=== PATIENT | male | born 1965 | race Caucasian/White ===

== ENCOUNTER 2016-10-11 09:53 | Emergency (ER) | payer OTHER ==
[~2016-10-11] VITALS: Ht 185.4 cm; Wt 175.4 kg
[2016-10-11 09:57] VITALS: TEMP 36.8; Ht 185.4 cm; Wt 175.4 kg
[2016-10-11] MEDS ORDERED: HYDR25TA4 PO (10:33)
[2016-10-11] MEDS ORDERED: AMLO-114 PO (10:33)
[2016-10-11] MEDS ORDERED: FUROSEMIDE 40 MG/4 ML VIAL IV STA (10:49)
[2016-10-11] MEDS ORDERED: CEFAZOLIN IV 2,000 MG in DEXTROSE 5% 50ML 50 ML IV ONE (11:00)
[2016-10-11 11:21] LABS: BASO % 0.4 %; BASO ABS # 0.02 K/uL (0-0.2); COMPLETE YES; EOS % 2.8 %; HEMATOCRIT 42.3 % (42-52); IG% 0.6 %; LYMPH % 13.4 %; LYMPH ABS # 0.72 K/uL (1.2-3.4); MEAN CELL VOLUME 82.8 fL (80-100); MEAN CORPUSCULAR HEMOGLOBIN 28.4 pg (25-34); MEAN CORPUSCULAR HGB CONC 34.3 g/dl (32-36); MEAN PLATELET VOLUME 11.1 fL (7.4-10.4); MONO % 10.4 %; NEUT % 72.4 %; PLATELET COUNT 143 K/uL (130-400); RED BLOOD COUNT 5.11 M/uL (4.7-6.1); WHITE BLOOD COUNT 5.38 K/uL (4.8-10.8)
[2016-10-11 11:35] LABS: PARTIAL THROMBOPLASTIN RATIO 1.3; PROTHROMBIN TIME (PATIENT) 10.7 SECONDS (9.0-12.0)
--- NOTE | 2016-10-11 11:37 | DIAGNOSTIC IMAGING REPORT ---
ULTRASOUND RIGHT VENOUS DOPP LOWER EXT UNILAT CLINICAL HISTORY: Right leg swelling COMPARISON STUDY: No previous studies for comparison. FINDINGS: Real-time and color flow Doppler imaging were performed. Flow was seen within the femoral, popliteal and calf veins with no intraluminal thrombus demonstrated. The saphenous vein is patent. IMPRESSION: No evidence of right lower extremity DVT. Electronically signed by: Minh Chapman M.D. 10/11/2016 11:35 AM Dictated Date/Time: 10/11/2016 11:35 AM
[2016-10-11 12:00] LABS: ALB/GLOB RATIO 1.1 (0.9-2); BUN/CREATININE RATIO 14.4 (10-20); CALCIUM 9.2 mg/dl (8.5-10.1); CREATININE 1.1 mg/dl (0.60-1.40); POTASSIUM 4.1 mmol/L (3.5-5.1)
[2016-10-11] MEDS ORDERED: CEPH500C PO (12:22)
[2016-10-11] MEDS ORDERED: LSX/40 PO (12:22)
--- NOTE | 2016-10-11 12:23 | EMERGENCY ROOM VISIT NOTE ---
History Report prepared by Bam: Rachid Nunes Under the Supervision of: Dr. Keyon Granados D.O. First contact with patient: 10:41 Chief Complaint: SWELLING TO EXTREMITY Stated Complaint: SWELLING TO RIGHT CALF History of Present Illness The patient is a 51 year old male who presents to the Emergency Room with complaints of worsening right calf swelling that started over the past few months. He says that he believes that he has a bunch of fluid in his leg, and he has had trouble with this in the past. The patient notes that he was seen at [facility] 3 weeks ago, and had an ultrasound which revealed no blood clots. He says that he has a bit of pain on the side of his right leg, and the patient was told by the doctors there to put a hot water bottle on the leg. The patient states that as the day goes on while sitting or walking, the fluid builds up, and the fluid is starting to make its way up to his right knee. He says that his left leg was swollen before, and it blistered up and the swelling went down. His right leg is more swollen and red than his left one currently. The patient takes blood pressure pills and fluid pills daily. The patient says that his blood pressure was measured at 140/80 prior to arrival. He states that he may have a bit of white coat syndrome. The patient is a social drinker. Source of History: patient Onset: Past few months Position: leg (right) Symptom Intensity: fluid making way up to right knee Quality: other (swelling, fluid filled) Timing: worsening Note: Associated symptoms: Right leg pain. Right leg more swollen and red than left leg. Review of Systems See HPI for pertinent positives & negatives. A total of 10 systems reviewed and were otherwise negative. Past Medical & Surgical Medical Problems: (1) HTN (hypertension) Family History Cancer FHx: stroke Heart disease Social History Smoking Status: Never Smoker Alcohol Use: occasionally Occupation Status: employed Current/Historical Medications Scheduled Amlodipine (Norvasc), 10 MG PO DAILY Cephalexin Monohydrate (Keflex), 500 MG PO QID Furosemide (Lasix), 40 MG PO QD Hydrochlorothiazide (Hctz), 25 MG PO DAILY Allergies Coded Allergies: Codeine (Unverified Allergy, Intermediate, HIVES, 10/11/16) Physical Exam Vital Signs Date Time Temp Pulse Resp B/P Pulse Ox O2 Delivery O2 Flow Rate FiO2 10/11/16 11:53 82 16 204/95 95 Room Air 10/11/16 09:57 36.8 93 18 217/118 95 Room Air Physical Exam CONSTITUTIONAL/VITAL SIGNS: Reviewed / noted above. GENERAL: Non-toxic in appearance. INTEGUMENTARY: Warm, dry, and [place]. HEAD: Normocephalic. EYES: without scleral icterus or trauma. ENT/OROPHARYNX: clear and moist. LYMPHADENOPATHY/NECK: Is supple without lymphadenopathy or meningismus. RESPIRATORY: Lungs clear and equal. CARDIOVASCULAR: Regular rate and rhythm. GI/ABDOMEN: Soft and nontender. No organomegaly or pulsatile mass. No rebound or guarding. Normal bowel sounds. EXTREMITIES: Bilateral lower extremity edema right greater than left. Light erythema to inferior aspect of lower leg. BACK: No CVA tenderness. NEUROLOGICAL: Intact without focal deficits. PSYCHIATRIC: normal affect. MUSCULOSKELETAL: Normally developed with good muscle tone. Medical Decision & Procedures ER Provider Diagnostic Interpretation: US results as stated below per my review and radiologist interpretation: ULTRASOUND RIGHT VENOUS DOPP LOWER EXT UNILAT CLINICAL HISTORY: Right leg swelling COMPARISON STUDY: No previous studies for comparison. FINDINGS: Real-time and color flow Doppler imaging were performed. Flow was seen within the femoral, popliteal and calf veins with no intraluminal thrombus demonstrated. The saphenous vein is patent. IMPRESSION: No evidence of right lower extremity DVT. Electronically signed by: Minh Chapman M.D. 10/11/2016 11:35 AM Dictated Date/Time: 10/11/2016 11:35 AM Laboratory Results 10/11/16 11:02 Red Blood Count 5.11, Mean Corpuscular Volume 82.8, Mean Corpuscular Hemoglobin 28.4, Mean Corpuscular Hemoglobin Concent 34.3, Mean Platelet Volume 11.1, Neutrophils (%) (Auto) 72.4, Lymphocytes (%) (Auto) 13.4, Monocytes (%) (Auto) 10.4, Eosinophils (%) (Auto) 2.8, Basophils (%) (Auto) 0.4, Neutrophils # (Auto ) 3.90, Lymphocytes # (Auto) 0.72, Monocytes # (Auto) 0.56, Eosinophils # (Auto ) 0.15, Basophils # (Auto) 0.02 10/11/16 11:02 Test 10/11/16 11:02 White Blood Count 5.38 K/uL (4.8-10.8) Red Blood Count 5.11 M/uL (4.7-6.1) Hemoglobin 14.5 g/dL (14.0-18.0) Hematocrit 42.3 % (42-52) Mean Corpuscular Volume 82.8 fL (80-100) Mean Corpuscular Hemoglobin 28.4 pg (25-34) Mean Corpuscular Hemoglobin Concent 34.3 g/dl (32-36) Platelet Count 143 K/uL (130-400) Mean Platelet Volume 11.1 fL (7.4-10.4) Neutrophils (%) (Auto) 72.4 % Lymphocytes (%) (Auto) 13.4 % Monocytes (%) (Auto) 10.4 % Eosinophils (%) (Auto) 2.8 % Basophils (%) (Auto) 0.4 % Neutrophils # (Auto) 3.90 K/uL (1.4-6.5) Lymphocytes # (Auto) 0.72 K/uL (1.2-3.4) Monocytes # (Auto) 0.56 K/uL (0.11-0.59) Eosinophils # (Auto) 0.15 K/uL (0-0.5) Basophils # (Auto) 0.02 K/uL (0-0.2) RDW Standard Deviation 43.1 fL (36.4-46.3) RDW Coefficient of Variation 14.4 % (11.5-14.5) Immature Granulocyte % (Auto) 0.6 % Immature Granulocyte # (Auto) 0.03 K/uL (0.00-0.02) Prothrombin Time 10.7 SECONDS (9.0-12.0) Prothromb Time International Ratio 1.0 (0.9-1.1) Activated Partial Thromboplast Time 34.8 SECONDS (21.0-31.0) Partial Thromboplastin Ratio 1.3 Anion Gap 2.0 mmol/L (3-11) Est Creatinine Clear Calc Drug Dose 134.2 ml/min Estimated GFR () 90.2 Estimated GFR (Non- 77.9 BUN/Creatinine Ratio 14.4 (10-20) Calcium Level 9.2 mg/dl (8.5-10.1) Total Bilirubin 0.6 mg/dl (0.2-1) Aspartate Amino Transf (AST/SGOT) 25 U/L (15-37) Alanine Aminotransferase (ALT/SGPT) 33 U/L (12-78) Alkaline Phosphatase 96 U/L (45-117) Total Protein 7.3 gm/dl (6.4-8.2) Albumin 3.8 gm/dl (3.4-5.0) Globulin 3.5 gm/dl (2.5-4.0) Albumin/Globulin Ratio 1.1 (0.9-2) Chemistry Specimen Hemolysis Laboratory results as stated above per my review. Medications Administered Medications (Trade) Dose Ordered Sig/Christian Route Start Time Stop Time Status Last Admin Dose Admin Furosemide 40 mg 40 mg NOW STAT IV 10/11/16 10:49 10/11/16 10:55 DC 10/11/16 11:09 40 MG Cefazolin Sodium/ Dextrose (Ancef Iv/D5 50ml) 60 ml @ 100 mls/hr ONE ONCE IV 10/11/16 11:00 10/11/16 11:35 DC 10/11/16 11:09 100 MLS/HR ED Course 1044: Previous medical records were reviewed. The patient was evaluated in room A4B. A complete history and physical examination was performed. 1049: Ordered Lasix Inj 40 g IV. 1100: Ordered Cefazolin Sodium 2000 mg/Dextrose 60 ml @ 100 mls/hr IV. 1231: On reevaluation, the patient is resting comfortably. I discussed the results and findings with the patient. He verbalized agreement of the treatment plan. He was discharged home. Medical Decision Differential diagnosis: Etiologies such as cellulitis, abscess, MRSA infection, DVT, necrotizing fasciitis, dermatitis, drug eruption, as well as others were entertained.. Breasts a 51-year-old male who presents to the ED with a chief complaint of right lower extremity swelling and some erythema. The patient reports symptoms for over a week. He states that he was seen at another hospital 3 weeks ago and had an ultrasound that was negative for DVT. Today patient presents with concerns for swelling as well as some erythema to the right lower extremity. His exam reveals asymmetric edema as well as erythema that is fairly light and lower extremity. He is also noted to have relatively high blood pressure. He states that he checked his blood pressure this morning and his blood pressure was 140/80 this morning. The patient does take medication for blood pressure. The patient has no additional complaints. Ultrasound of the right lower extremity did not reveal DVT. CBC and complete metabolic panel were unremarkable. He was treated with IV Lasix and IV Ancef. He will be discharged on Keflex and given Lasix for a few days to help the edema. He is told to follow-up with his PCP. Medication Reconciliation: I attest that I have personally reviewed the patient' s current medication list. Blood pressure Screening: Patient was found to have an elevated blood pressure and was referred to their primary doctor for recheck and further treatment. Impression Primary Impression: Swelling of right extremity Additional Impression: Cellulitis Scribe Attestation The scribe's documentation has been prepared under my direction and personally reviewed by me in its entirety. I confirm that the note above accurately reflects all work, treatment, procedures, and medical decision making performed by me. Departure Information Dispostion Home / Self-Care Prescriptions Furosemide (Lasix) 40 Mg Tab 40 MG PO QD for 4 Days, #4 TAB Prov: Keyon Granados D.O. 10/11/16 Cephalexin Monohydrate (Keflex) 500 Mg Cap 500 MG PO QID, #28 CAP Prov: Keyon Granados D.O. 10/11/16 Referrals No Doctor, Assigned (PCP) Patient Instructions Cellulitis - [facility], [facility] Additional Instructions Keflex as prescribed week. Lasix once a day for the next 4 days. This should help with swelling. Follow-up with your doctor later this week or early next week for recheck. Return for significant worsening or new concerns. Problem Qualifiers
[2016-10-11 12:54] VITALS: BP 150/92; PULSE 82; O2SAT 94
== END 2016-10-11 12:55 | disposition home or self-care (01) ==
LOC: C.EDB 09:55 → C.EDA 12:55
DX: L03.115 Cellulitis of right lower limb (principal); M79.89 Other specified soft tissue disorders; I10 Essential (primary) hypertension; Z79.899 Other long term (current) drug therapy; Z88.5 Allergy status to narcotic agent; Z80.9 Family history of malignant neoplasm, unspecified; Z82.3 Family history of stroke; Z82.49 Family history of ischemic heart disease and other diseases of the circulatory system

== ENCOUNTER 2018-07-30 12:03 | Inpatient (IN) ==
[2018-07-30] MEDS ORDERED: NITROGLYCERIN 2% OINTMENT 30GM TUBE EXT SCH (12:30)
[2018-07-30 12:45] LABS: Basophils # (auto) 0.02 K/uL (0-0.2); Basophils % (auto) 0.3 %; Eosinophils # (auto) 0.15 K/uL (0-0.5); Hematocrit (blood only) 50.7 % (42-52); Hemoglobin 17.3 g/dL (14.0-18.0); Immature Granulocytes # (auto) 0.04 K/uL (0.00-0.02); Immature Granulocytes % (auto) 0.5 %; Lymphocytes # (auto) 0.69 K/uL (1.2-3.4); Lymphocytes % (auto) 9.1 %; Mean Corpuscular Hgb Conc 34.1 g/dL (32-36); Mean Corpuscular Volume 84.8 fL (80-100); Mean Platelet Volume 11.5 fL (7.4-10.4); Monocytes # (auto) 0.78 K/uL (0.11-0.59); Monocytes % (auto) 10.3 %; Neutrophils # (auto) 5.91 K/uL (1.4-6.5); Neutrophils % (auto) 77.8 %; Platelet Count 128 K/uL (130-400); RDW Coefficient of Variation 16.4 % (11.5-14.5); RDW Standard Deviation 50.1 fL (36.4-46.3); Red Blood Count 5.98 M/uL (4.7-6.1); White Blood Count 7.59 K/uL (4.8-10.8)
--- NOTE | 2018-07-30 12:48 | XRay Report ---
XR chest 1V portable HISTORY: Dyspnea COMPARISON: None. FINDINGS: No pneumothorax. Small bilateral pleural effusions. The heart is mildly enlarged. Slight el evation of the right hemidiaphragm. Perihilar interstitial and vascular thickening consistent with pu lmonary edema. Linear density at the left midlung zone consistent with subsegmental atelectasis. Patc hy density left lung base. IMPRESSION: 1. Mild to moderate pulmonary edema with small bilateral pleural effusions. 2. Patchy left basilar densities are nonspecific but could represent atelectasis or pneumonia. Electronically signed by: Maciel Silverman M.D. 07/30/2018 12:47 PM
[2018-07-30 12:49] LABS: Base Excess VBG 9.9 mEq/L; Oxygen Saturation VBG 76.7 %; pH VBG 7.38 (7.36-7.41)
[2018-07-30 12:57] LABS: Partial Thromboplastin Time 28.2 Seconds (21.0-31.0); Prothrombin Time 10.7 Seconds (9.0-12.0)
[2018-07-30 13:02] LABS: Alanine Aminotransferase 38 U/L (12-78); Albumin Level 3.9 gm/dl (3.4-5.0); Aspartate Aminotransferase 23 U/L (15-37); BUN Creatinine Ratio 15.5 (10-20); Blood Urea Nitrogen 16 mg/dl (7-18); Calcium 8.9 mg/dl (8.5-10.1); Carbon Dioxide 38 mmol/L (21-32); Chloride 98 mmol/L (98-107); Creatinine Clr Calc Pharmacy 139.1 ml/min; Est GFR (African American) 95.2; Est GFR (Non-African American) 82.2; Glucose 120 mg/dl (70-99); Potassium 3.4 mmol/L (3.5-5.1); Sodium 139 mmol/L (136-145)
[2018-07-30 13:07] LABS: Albumin Globulin Ratio 1.1 (0.9-2); Alkaline Phosphatase 103 U/L (45-117); Bilirubin,Total 0.8 mg/dl (0.2-1); Globulin 3.7 gm/dl (2.5-4.0); NT Pro B Type Natriuretic Pept 80 pg/ml (0-900); Total Protein 7.6 gm/dl (6.4-8.2); Troponin I < 0.015 ng/ml (0-0.045)
[2018-07-30 13:26] LABS: Influenza A virus by PCR Neg for Influ A (Neg); Influenza B virus by PCR Neg for Influ B (Neg)
[2018-07-30] MEDS ORDERED: FUROSEMIDE 40 MG/4 ML VIAL IV STA (14:05)
[2018-07-30] MEDS ORDERED: POTASSIUM CHLORIDE 20 MEQ TABCR PO STA (14:07)
--- NOTE | 2018-07-30 15:01 | History & Physical Report ---
Date of Service July 30, 2018 Assessment & Plan (1) Acute respiratory failure with hypoxia and hypercapnia: (2) CHF (congestive heart failure): This is a 53-year-old male who has a significant past medical history of PAF not on oral anticoagulation, HTN, ENE on CPAP, asthma, history of sarcoidosis who presents to [facility] secondary to VILLANUEVA times 2-3 weeks. In ED he was noted to be hypoxic on arrival at 72% and placed on 5 L O2, hypertensive with BP 204/109. Chest x-ray revealed mild to moderate pulmonary edema with patchy left basilar density concerning for pneumonia versus atelectasis. EKG revealed normal sinus rhythm. Lab work revealed hemoglobin 17.3, hematocrit 50.7, platelet 128, VBG pH 7.38, VBG PCO2 66, potassium 3.4, BUN 16, creatinine 1.04, BNP 80, troponin WNL, pro-calcitonin WNL, negative for influenza. Etiology of VILLANUEVA likely multifactorial including but not limited to possible CHF, hypertensive heart disease, obesity hyperventilation syndrome, hypertension, asthma or COPD, ENE -admit to med/surg telemetry -consult cardiology -obtain resting echocardiogram -initiate lasix 40mg IV BID -monitor daily weights, strict I and O -check d-dimer to r/o PE given hypoxia and tachycardia -control blood pressure, add hydralazine 25mg 12hr and prn clonidine -fasting lipid panel in a.m. (3) HTN (hypertension): -Patient significantly hypertensive on admission and received Lasix 40 mg IV as well as 2 inch Nitropaste -Continue amlodipine but hold HCTZ given IV Lasix -Will add hydralazine 25 mg every 12 hours and clonidine 0.1 mg every 6 hours as needed (4) PAF (paroxysmal atrial fibrillation): -Reports history of PAF in 2011, followed Dr. 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 Salguero upon discharge Patient was seen and examined in collaboration with Dr. Torrez, please see addendum Starting 07/31/18 patient will be followed by Dr. Godoy History of Present Illness Chief Complaint: VILLANUEVA x 2-3 weeks. Primary Care Provider: Roberto Parkinson DO This is a 53-year-old male who has a significant past medical history of PAF not on oral anticoagulation, HTN, ENE on CPAP, asthma, history of sarcoidosis who presents to [facility] secondary to VILLANUEVA times 2-3 weeks. 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 He developed back pain approximately 2-3 weeks ago, "my back went out." He initially thought shortness of breath was related to his back pain and therefore saw a chiropractor. His back pain improved after adjustment but his dyspnea on exertion continued. Symptoms continued to get worse, "I even get short of breath with walking short distances." He denies shortness breath at rest, chest pain, palpitations, orthopnea, PND, recent illness, fever, chills, sweats, cough, hemoptysis, nausea, vomiting, diarrhea, changes in bowel or urinary habits. He does have chronic bilateral lower extremity swelling in which he feels is unchanged. "I do feel like I am full of fluid." He has had a weight gain per patient from 380lb to approximately 410lb. He attributes this to sedentary lifestyle during winter months; however, his weight here is 3-7 pounds. He denies any history of heart disease or CHF. He does note back in 2011 he had an episode of paroxysmal atrial fibrillation treated under the care of paint roller covers supervisor Dr. Pedersen in [place]. He is no longer under his care and does not take any oral anticoagulants. Further he states he has a history of sarcoidosis; however he has never seen a rheumatologi st or received treatment for such, just notes that he wears a CPAP at . and daughter at bedside. Allergies Allergy/AdvReac Type Severity Reaction Status Date / Time codeine Allergy Intermediate HIVES Unverified 07/30/18 13:04 Home Medications Home Medications Medication Instructions Recorded Confirmed Type amlodipine 10 mg PO DAILY 07/30/18 07/30/18 History hydrochlorothiazide 25 mg PO DAILY 07/30/18 07/30/18 History potassium chloride [Klor-Con 10] 10 meq PO DAILY 07/30/18 07/30/18 History triamcinolone acetonide 1 applic TOPICAL HS 07/30/18 07/30/18 History Past Med/Surg History Medical History Morbid obesity with BMI of 50.0-59.9, adult (Chronic) Venous stasis dermatitis of both lower extremities (Chronic) PAF (paroxysmal atrial fibrillation) (Chronic) Asthma (Chronic) ENE on CPAP (Chronic) Sarcoidosis (Chronic) HTN (hypertension) (Chronic) Sarcoidosis of lung Surgical History History of tonsillectomy (Chronic) History of cholecystectomy (Chronic) History of extraction of renal calculus (Chronic) Family History Father Bladder cancer Mother COPD (chronic obstructive pulmonary disease) Valvular heart disease Social History Preferred Language: Uzbek Communication Ability: Effective 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 Beliefs That Will Affect Care: None marital status: Current Living Situation: Family current occupational status: employed current occupation: [employer] Other Information That Helps Us Care for You: No Feels Safe at Home: Yes Safety Concerns: Feels Safe At This Time Smoking Status: Never smoker Hx Alcohol Use: No Hx Substance Use: No Review of Systems All systems reviewed & are unremarkable except as noted in HPI & below Physical Exam Vital Signs (Past 24 Hours): Last Vital Signs Temp 36.8 C 07/30/18 12:06 Pulse 104 H 07/30/18 14:30 Resp 21 07/30/18 14:30 BP 176/106 H 07/30/18 14:30 Pulse Ox 89 L 07/30/18 14:30 Physical Exam: Gen: WD/WN, Morbidly obese M, NAD, sitting up in bed, pleasant, conversing easily Head: Normocephalic, Atraumatic Eyes: Sclera normal, no conjunctival injection, PERRLA, EOMI ENT: Gross hearing intact, normal pharynx, mucous membranes moist Neck: supple, no adenopathy, No JVD, no bruit, Resp: Breath sounds distant given morbid obesity, Clear to auscultation b/l, no wheeze, rales, rhonchi. 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 Extremities: Bilateral lymphedema with venous stasis changes, no open wounds Skin: warm, moist, no rash, negative turgor, cap refill < 2sec Neuro: Alert and oriented x 3, speech normal, good mood/affect, cran nerve 2-12 intact grossly : deferred Results & Data Laboratory Results Short CBC 07/30/18 Range/Units 12:29 WBC 7.59 (4.8-10.8) K/uL Hgb 17.3 (14.0-18.0) g/dL Hct 50.7 (42-52) % Plt Count 128 L (130-400) K/uL BMP 07/30/18 12:29 Sodium 139 Potassium 3.4 L Chloride 98 Carbon Dioxide 38 H BUN 16 Creatinine 1.04 Glucose 120 H Calcium 8.9 Cardiac Enzymes 07/30/18 Range/Units 12:29 Troponin I < 0.015 (0-0.045) ng/ml Liver Function 07/30/18 Range/Units 12:29 Total Bilirubin 0.8 (0.2-1) mg/dl AST 23 (15-37) U/L ALT 38 (12-78) U/L Alkaline Phosphatase 103 (45-117) U/L Albumin 3.9 (3.4-5.0) gm/dl Diagnostic Findings CXR: IMPRESSION: 1. Mild to moderate pulmonary edema with small bilateral pleural effusions. 2. Patchy left basilar densities are nonspecific but could represent atelectasis or pneumonia. Medications Administered Nitroglycerin (Nitro-Bid 2%) 2 inch EXT Q6H ROOPA Stop: 08/29/18 12:29 Last Admin: 07/30/18 12:50 Dose: 2 inch Documented by: [id number] Discontinued Medications Furosemide (Lasix) 40 mg IV NOW STA Stop: 07/30/18 14:06 Last Admin: 07/30/18 14:31 Dose: 40 mg Documented by: [id number] Potassium Chloride (Klor-Con M20) 40 meq PO NOW STA Stop: 07/30/18 14:08 Last Admin: 07/30/18 14:31 Dose: 40 meq Documented by: [id number] ECG Rate (beats per minute): 94 Rhythm: normal sinus Findings: + prolonged QT (QTC 458 ms) Code Status & VTE Plan Code Status Full Code VTE Prophylaxis Plan VTE Prophylaxis will be ordered: Yes Supervising Physician Co-Signing Physician Notes Attending addendum The patient was seen and examined in emergency room the presence of the daughter He is a 53-year-old male who has a significant past medical history of PAF not on oral anticoagulation, HTN, ENE on CPAP, asthma, history of sarcoidosis who presents to [facility] secondary to VILLANUEVA times 2-3 weeks. Complains to have bilateral leg swelling and weight gain but denies any chest pain and/or palpitation. No fever and/or chills. 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 No focal sensory and no motor deficit Admission labs, EKG and imaging studies reviewed Has CHF likely secondary to diastolic heart failure with a history of PAF but now in sinus rhythm History of sarcoidosis may be contributing shortness of breath We will rule out pulmonary embolism during this admission as well I agree with assessment plan as outlined above by Caron Torrez (1) CHF (congestive heart failure) Heart failure chronicity: unspecified Heart failure type: unspecified Qualified Code(s): I50.9 - Heart failure, unspecified (2) HTN (hypertension) Hypertension type: essential hypertension Qualified Code(s): I10 - Essential (primary) hypertension
[2018-07-30] MEDS ORDERED: POLYETHYLENE (MIRALAX) 17 GM PACK PO PRN (16:03)
[2018-07-30] MEDS ORDERED: ACETAMINOPHEN 325 MG TAB PO PRN (16:03)
[2018-07-30] MEDS ORDERED: cloNIDine HCl 0.1 MG TAB PO PRN (16:03)
[2018-07-30] MEDS ORDERED: MAGNESIUM HYDROXIDE SUSP 30 ML UDC PO PRN (16:03)
[2018-07-30] MEDS ORDERED: ALBUTEROL 0.083% NEBU SOLN 3 ML VIAL NEB PRN (16:03)
[2018-07-30] MEDS ORDERED: ALUMINUM/MAGNESIUM SUSP 30 ML UDC PO PRN (16:03)
[2018-07-30 16:11] LABS: Appearance Urine Clear (Clear); Bacteria Urine Automated Negative (Negative); Bilirubin Urine Negative (Negative); Blood Urine Negative (Negative); Color Urine Yellow; Epithelial Cell Urine Auto 0-5 /lpf (0-5); Glucose Urine UA Negative (Negative); Ketones Urine Negative (Negative); Leukocyte Esterase Urine Negative (Negative); Nitrite Urine Negative (Negative); Protein Urine Trace (Negative); RBC Urine Automated 0-4 /hpf (0-4); Specific Gravity Urine 1.014 (1.000-1.030); Urobilinogen Urine Negative (Negative)
[2018-07-30 16:25] LABS: D Dimer 980 ug/L FEU (0-500)
[2018-07-30] MEDS: ENOXAPARIN INJ 40 MG/0.4 ML SYR SQ SCH (17:38)
[2018-07-30] MEDS: LOSARTAN POTASSIUM 50 MG TAB PO SCH (18:26)
--- NOTE | 2018-07-30 19:22 | Emergency Department Note ---
Entered by Pooja Liang acting as a scribe for Rafael Miller DO History of Present Illness General Chief complaint: Shortness of Breath/Dyspnea Stated complaint: SHORTNESS OF BREATH Source: patient History of Present Illness Onset (ago): day(s) 3 Location: chest Pain Consistency: + other (worsening) Quality: + other (shortness of breath) Exacerbated By: + movement (exertion); not by other (lying flat) Associated symptoms: + denies other symptoms (new leg swelling, abdominal pain, rhinorrhea); no chest pain, no cough and no nausea/vomiting The patient is a 53 year old male who presents to the Emergency Room with complaints of worsening shortness of breath starting 3 days ago. The patient states that for the last 3 days he hasnt been able to catch his breath. He states that it is worse when he exerts himself. The patient complains of gaining 20 lbs since the end of summer. He notes that he has a history of sarcoidosis of the lung and normally wears 5L of O2 at night with his C-PAP, but never wears O2 during the day. The patient denies chest pain, new leg swelling , the shortness of breath being worse when lying flat, a history of blood clots, abdominal pain, nausea, vomiting, cough, rhinorrhea, a history of heart, and use of blood thinners. Home Medications Home Medications Medication Instructions Recorded Confirmed Type amlodipine 10 mg PO DAILY 07/30/18 07/30/18 History hydrochlorothiazide 25 mg PO DAILY 07/30/18 07/30/18 History potassium chloride [Klor-Con 10] 10 meq PO DAILY 07/30/18 07/30/18 History triamcinolone acetonide 1 applic TOPICAL HS 07/30/18 07/30/18 History Allergies Allergy/AdvReac Type Severity Reaction Status Date / Time codeine Allergy Intermediate HIVES Unverified 07/30/18 13:04 Past Med/Surg History Medical History Morbid obesity with BMI of 50.0-59.9, adult (Chronic) Venous stasis dermatitis of both lower extremities (Chronic) PAF (paroxysmal atrial fibrillation) (Chronic) Asthma (Chronic) ENE on CPAP (Chronic) Sarcoidosis (Chronic) HTN (hypertension) (Chronic) Sarcoidosis of lung Surgical History History of tonsillectomy (Chronic) History of cholecystectomy (Chronic) History of extraction of renal calculus (Chronic) Family History Father Bladder cancer Mother COPD (chronic obstructive pulmonary disease) Valvular heart disease Social History Preferred Language: Maltese Communication Ability: Effective 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 and A total of 10 systems reviewed and were otherwise negative Physical Exam Vital Signs Vital Signs - 24 hr 07/30/18 12:06 07/30/18 12:29 07/30/18 12:30 Temperature 36.8 C Temperature Source Oral Sepsis Recent Fever Within 48 Hours No Sepsis New/Unexplained Change in Mental Status No Sepsis Action Taken by Nursing No Action Required Pulse Rate 111 H 98 H 96 H Pulse Rate [Left Radial] Pulse Rate from SpO2 Sensor 99 H 95 H Pulse Rhythm [Left Radial] Pulse Strength [Left Radial] Respiratory Rate 24 20 22 Respiratory Effort / Characteristics Labored Respiratory Depth Respiratory Pattern Regular Blood Pressure 204/109 H Blood Pressure [Right Arm] Blood Pressure Mean 140 Blood Pressure Mean [Right Arm] Blood Pressure Position Sitting Blood Pressure Position [Right Arm] Pulse Oximetry 72 L 92 91 Oxygen Delivery Method Room Air Oxygen Flow Rate 07/30/18 12:36 07/30/18 12:40 07/30/18 12:49 Temperature Temperature Source Sepsis Recent Fever Within 48 Hours Sepsis New/Unexplained Change in Mental Status Sepsis Action Taken by Nursing Pulse Rate 93 H 90 Pulse Rate [Left Radial] Pulse Rate from SpO2 Sensor 93 H 91 H Pulse Rhythm [Left Radial] Pulse Strength [Left Radial] Respiratory Rate 25 H 18 Respiratory Effort / Characteristics Short of Breath SOB on Exertion Respiratory Depth Shallow Respiratory Pattern Blood Pressure 175/105 H Blood Pressure [Right Arm] Blood Pressure Mean 128 Blood Pressure Mean [Right Arm] Blood Pressure Position Blood Pressure Position [Right Arm] Pulse Oximetry 95 92 91 Oxygen Delivery Method Nasal Cannula Nasal Cannula Oxygen Flow Rate 5 5 07/30/18 12:51 07/30/18 13:00 07/30/18 13:10 Temperature Temperature Source Sepsis Recent Fever Within 48 Hours Sepsis New/Unexplained Change in Mental Status Sepsis Action Taken by Nursing Pulse Rate 93 H 95 H 87 Pulse Rate [Left Radial] Pulse Rate from SpO2 Sensor 94 H 94 H 88 Pulse Rhythm [Left Radial] Pulse Strength [Left Radial] Respiratory Rate 24 26 H 27 H Respiratory Effort / Characteristics Respiratory Depth Respiratory Pattern Blood Pressure 179/106 H Blood Pressure [Right Arm] Blood Pressure Mean 130 Blood Pressure Mean [Right Arm] Blood Pressure Position Blood Pressure Position [Right Arm] Pulse Oximetry 93 93 92 Oxygen Delivery Method Oxygen Flow Rate 07/30/18 13:20 07/30/18 13:30 07/30/18 13:40 Temperature Temperature Source Sepsis Recent Fever Within 48 Hours Sepsis New/Unexplained Change in Mental Status Sepsis Action Taken by Nursing Pulse Rate 92 H 87 87 Pulse Rate [Left Radial] Pulse Rate from SpO2 Sensor 92 H 87 87 Pulse Rhythm [Left Radial] Pulse Strength [Left Radial] Respiratory Rate 32 H 24 20 Respiratory Effort / Characteristics Respiratory Depth Respiratory Pattern Blood Pressure 169/97 H Blood Pressure [Right Arm] Blood Pressure Mean 121 Blood Pressure Mean [Right Arm] Blood Pressure Position Blood Pressure Position [Right Arm] Pulse Oximetry 94 92 92 Oxygen Delivery Method Oxygen Flow Rate 07/30/18 13:50 07/30/18 14:00 07/30/18 14:10 Temperature Temperature Source Sepsis Recent Fever Within 48 Hours Sepsis New/Unexplained Change in Mental Status Sepsis Action Taken by Nursing Pulse Rate 98 H 97 H 89 Pulse Rate [Left Radial] Pulse Rate from SpO2 Sensor 99 H 97 H 90 Pulse Rhythm [Left Radial] Pulse Strength [Left Radial] Respiratory Rate 21 28 H 21 Respiratory Effort / Characteristics Respiratory Depth Respiratory Pattern Blood Pressure 166/95 H Blood Pressure [Right Arm] Blood Pressure Mean 118 Blood Pressure Mean [Right Arm] Blood Pressure Position Blood Pressure Position [Right Arm] Pulse Oximetry 92 91 91 Oxygen Delivery Method Oxygen Flow Rate 07/30/18 14:20 07/30/18 14:30 07/30/18 15:00 Temperature Temperature Source Sepsis Recent Fever Within 48 Hours Sepsis New/Unexplained Change in Mental Status Sepsis Action Taken by Nursing Pulse Rate 94 H 104 H 92 H Pulse Rate [Left Radial] Pulse Rate from SpO2 Sensor 98 H 98 H 92 H Pulse Rhythm [Left Radial] Pulse Strength [Left Radial] Respiratory Rate 20 21 18 Respiratory Effort / Characteristics Respiratory Depth Respiratory Pattern Blood Pressure 176/106 H 156/92 H Blood Pressure [Right Arm] Blood Pressure Mean 129 113 Blood Pressure Mean [Right Arm] Blood Pressure Position Blood Pressure Position [Right Arm] Pulse Oximetry 92 89 L 91 Oxygen Delivery Method Nasal Cannula Oxygen Flow Rate 5 07/30/18 15:30 07/30/18 15:46 07/30/18 16:18 Temperature 36.8 C Temperature Source Oral Sepsis Recent Fever Within 48 Hours Sepsis New/Unexplained Change in Mental Status Sepsis Action Taken by Nursing Pulse Rate 88 88 Pulse Rate [Left Radial] 86 Pulse Rate from SpO2 Sensor 88 Pulse Rhythm [Left Radial] Regular Pulse Strength [Left Radial] Normal Respiratory Rate 27 H 27 H 20 Respiratory Effort / Characteristics Spontaneous SOB on Exertion Respiratory Depth Normal Respiratory Pattern Regular Blood Pressure 156/110 H 156/110 H Blood Pressure [Right Arm] 194/103 H Blood Pressure Mean 125 Blood Pressure Mean [Right Arm] 133 Blood Pressure Position Blood Pressure Position [Right Arm] Sitting Pulse Oximetry 92 92 91 Oxygen Delivery Method Nasal Cannula Nasal Cannula Nasal Cannula Oxygen Flow Rate 5 5 5 07/30/18 16:58 Temperature Temperature Source Sepsis Recent Fever Within 48 Hours Sepsis New/Unexplained Change in Mental Status Sepsis Action Taken by Nursing Pulse Rate 92 H Pulse Rate [Left Radial] Pulse Rate from SpO2 Sensor Pulse Rhythm [Left Radial] Pulse Strength [Left Radial] Respiratory Rate Respiratory Effort / Characteristics Respiratory Depth Respiratory Pattern Blood Pressure Blood Pressure [Right Arm] Blood Pressure Mean Blood Pressure Mean [Right Arm] Blood Pressure Position Blood Pressure Position [Right Arm] Pulse Oximetry Oxygen Delivery Method Oxygen Flow Rate GENERAL: Morbidly obese, sitting up in bed, no acute distress. EYE EXAM: normal conjunctiva. OROPHARYNX: no exudate, no erythema, lips, buccal mucosa, and tongue normal and mucous membranes are moist NECK: supple, no nuchal rigidity, no adenopathy, non-tender, unable to appreciate JVD. LUNGS: Diminished at the bases. Normal chest wall mechanics HEART: no murmurs, S1 normal and S2 normal ABDOMEN: abdomen soft, non-tender, normo-active bowel, sounds, no masses, no rebound or guarding. BACK: Back is symmetrical on inspection and there is no deformity, no midline tenderness, no CVA tenderness. SKIN: no rashes and no bruising UPPER EXTREMITIES: upper extremities are grossly normal. LOWER EXTREMITIES: Pitting edema tracking up to bilateral thighs. NEURO EXAM: Normal sensorium, cranial nerves II-XII grossly intact, normal speech, no gross weakness of arms, no gross weakness of legs. Course ED COURSE: Vital signs were reviewed and showed hypertension, tachycardia, and hypoxia. The patients medical record was reviewed The above diagnostic studies were performed and reviewed. ED treatments and interventions as stated above. 1223: The patient was evaluated in room A9A. A complete history and physical examination was performed. 1401: Upon reevaluation, the patient is resting comfortably. I discussed my findings with the patient and he understands and agrees with the treatment plan. Based on the patients age, coexisting illnesses, exam and lab findings the decision to treat as an inpatient was made. The patient remained stable while under my care. The patient will be evaluated for further management. 1404: I reviewed the patient's case with LINDA Tim. She will evaluate the patient for further management. Consultations Consultation #1: I reviewed the patient's case with LINDA Tim. She will evaluate the patient for further management. Time: 14:04 Administered Medications Enoxaparin Sodium (Lovenox) 40 mg SQ Q24H ROOPA Stop: 08/29/18 16:59 Last Admin: 07/30/18 17:38 Dose: 40 mg Documented by: [id number] Losartan Potassium (Cozaar) 50 mg PO QAM ROOPA Stop: 08/29/18 17:29 Last Admin: 07/30/18 18:26 Dose: 50 mg Documented by: [id number] Discontinued Medications Furosemide (Lasix) 40 mg IV NOW STA Stop: 07/30/18 14:06 Last Admin: 07/30/18 14:31 Dose: 40 mg Documented by: [id number] Hydralazine HCl (Apresoline) 25 mg PO NOW STA Stop: 07/30/18 17:25 Last Admin: 07/30/18 17:38 Dose: 25 mg Documented by: [id number] Nitroglycerin (Nitro-Bid 2%) 2 inch EXT Q6H ROOPA Stop: 08/29/18 12:29 Last Admin: 07/30/18 12:50 Dose: 2 inch Documented by: [id number] Potassium Chloride (Klor-Con M20) 40 meq PO NOW STA Stop: 07/30/18 14:08 Last Admin: 07/30/18 14:31 Dose: 40 meq Documented by: [id number] Medical Decision Making Differential Diagnosis Differential diagnoses includes but is not limited to pneumonia, bronchitis, COPD/Asthma exacerbation, pneumothorax, pulmonary embolism, congestive heart failure, acute coronary syndrome Medical Records Attestation: I reviewed the patient's medical records. Home Medications Current Medication List: was personally reviewed by me Laboratory Data Attestation: I reviewed the patient's lab results. Result diagrams: 07/30/18 12:29 07/30/18 12:29 Lab Results 07/30/18 07/30/18 07/30/18 Range/Units 12:29 12:29 12:29 WBC 7.59 (4.8-10.8) K/uL RBC 5.98 (4.7-6.1) M/uL Hgb 17.3 (14.0-18.0) g/dL Hct 50.7 (42-52) % MCV 84.8 (80-100) fL MCH 28.9 (25-34) pg MCHC 34.1 (32-36) g/dL RDW Std Deviation 50.1 H (36.4-46.3) fL RDW Coeff of Gladys 16.4 H (11.5-14.5) % Plt Count 128 L (130-400) K/uL MPV 11.5 H (7.4-10.4) fL Immature Gran % (Auto) 0.5 % Neut % (Auto) 77.8 % Lymph % (Auto) 9.1 % [place] % (Auto) 10.3 % Eos % (Auto) 2.0 % Baso % (Auto) 0.3 % Immature Gran # (Auto) 0.04 H (0.00-0.02) K/uL Neut # (Auto) 5.91 (1.4-6.5) K/uL Lymph # (Auto) 0.69 L (1.2-3.4) K/uL [place] # (Auto) 0.78 H (0.11-0.59) K/uL Eos # (Auto) 0.15 (0-0.5) K/uL Baso # (Auto) 0.02 (0-0.2) K/uL PT 10.7 (9.0-12.0) Seconds INR 1.0 (0.9-1.1) APTT 28.2 (21.0-31.0) Seconds PTT Ratio 1.0 D-Dimer (0-500) ug/L FEU VBG pH (7.36-7.41) VBG pCO2 (38-50) mmHg VBG pO2 mmHg VBG HCO3 mmol/L VBG O2 Saturation % VBG Base Excess mEq/L Barometric Pressure mm/Hg Sodium 139 (136-145) mmol/L Potassium 3.4 L (3.5-5.1) mmol/L Chloride 98 (98-107) mmol/L Carbon Dioxide 38 H (21-32) mmol/L Anion Gap 3.0 (3-11) BUN 16 (7-18) mg/dl Creatinine 1.04 (0.6-1.4) mg/dl Est Cr Clr Drug Dosing 139.1 ml/min Est GFR ( Amer) 95.2 Est GFR (Non-Af Amer) 82.2 BUN/Creatinine Ratio 15.5 (10-20) Glucose 120 H (70-99) mg/dl Calcium 8.9 (8.5-10.1) mg/dl Total Bilirubin 0.8 (0.2-1) mg/dl AST 23 (15-37) U/L ALT 38 (12-78) U/L Alkaline Phosphatase 103 (45-117) U/L Troponin I < 0.015 (0-0.045) ng/ml NT-Pro-B Natriuret Pep 80 (0-900) pg/ml Total Protein 7.6 (6.4-8.2) gm/dl Albumin 3.9 (3.4-5.0) gm/dl Globulin 3.7 (2.5-4.0) gm/dl Albumin/Globulin Ratio 1.1 (0.9-2) Procalcitonin (0-0.5) ng/ml Urine Color Urine Appearance (Clear) Urine pH (4.5-7.5) Ur Specific [place] (1.000-1.030) Urine Protein (Negative) Urine Glucose (UA) (Negative) Urine Ketones (Negative) Urine Blood (Negative) Urine Nitrite (Negative) Urine Bilirubin (Negative) Urine Urobilinogen (Negative) Ur Leukocyte Esterase (Negative) Urine WBC (Auto) (0-5) /hpf Urine RBC (Auto) (0-4) /hpf U Hyaline Cast (Auto) (0-5) /lpf U Epithel Cells (Auto) (0-5) /lpf Urine Bacteria (Auto) (Negative) Influenza Type A (PCR) (Neg) Influenza Type B (PCR) (Neg) 07/30/18 07/30/18 07/30/18 Range/Units 12:29 12:29 12:32 WBC (4.8-10.8) K/uL RBC (4.7-6.1) M/uL Hgb (14.0-18.0) g/dL Hct (42-52) % MCV (80-100) fL MCH (25-34) pg MCHC (32-36) g/dL RDW Std Deviation (36.4-46.3) fL RDW Coeff of Gladys (11.5-14.5) % Plt Count (130-400) K/uL MPV (7.4-10.4) fL Immature Gran % (Auto) % Neut % (Auto) % Lymph % (Auto) % [place] % (Auto) % Eos % (Auto) % Baso % (Auto) % Immature Gran # (Auto) (0.00-0.02) K/uL Neut # (Auto) (1.4-6.5) K/uL Lymph # (Auto) (1.2-3.4) K/uL [place] # (Auto) (0.11-0.59) K/uL Eos # (Auto) (0-0.5) K/uL Baso # (Auto) (0-0.2) K/uL PT (9.0-12.0) Seconds INR (0.9-1.1) APTT (21.0-31.0) Seconds PTT Ratio D-Dimer 980 H* (0-500) ug/L FEU VBG pH 7.38 (7.36-7.41) VBG pCO2 66 H (38-50) mmHg VBG pO2 41 mmHg VBG HCO3 38 mmol/L VBG O2 Saturation 76.7 % VBG Base Excess 9.9 mEq/L Barometric Pressure 737.7 mm/Hg Sodium (136-145) mmol/L Potassium (3.5-5.1) mmol/L Chloride (98-107) mmol/L Carbon Dioxide (21-32) mmol/L Anion Gap (3-11) BUN (7-18) mg/dl Creatinine (0.6-1.4) mg/dl Est Cr Clr Drug Dosing ml/min Est GFR ( Amer) Est GFR (Non-Af Amer) BUN/Creatinine Ratio (10-20) Glucose (70-99) mg/dl Calcium (8.5-10.1) mg/dl Total Bilirubin (0.2-1) mg/dl AST (15-37) U/L ALT (12-78) U/L Alkaline Phosphatase (45-117) U/L Troponin I (0-0.045) ng/ml NT-Pro-B Natriuret Pep (0-900) pg/ml Total Protein (6.4-8.2) gm/dl Albumin (3.4-5.0) gm/dl Globulin (2.5-4.0) gm/dl Albumin/Globulin Ratio (0.9-2) Procalcitonin 0.06 (0-0.5) ng/ml Urine Color Urine Appearance (Clear) Urine pH (4.5-7.5) Ur Specific [place] (1.000-1.030) Urine Protein (Negative) Urine Glucose (UA) (Negative) Urine Ketones (Negative) Urine Blood (Negative) Urine Nitrite (Negative) Urine Bilirubin (Negative) Urine Urobilinogen (Negative) Ur Leukocyte Esterase (Negative) Urine WBC (Auto) (0-5) /hpf Urine RBC (Auto) (0-4) /hpf U Hyaline Cast (Auto) (0-5) /lpf U Epithel Cells (Auto) (0-5) /lpf Urine Bacteria (Auto) (Negative) Influenza Type A (PCR) (Neg) Influenza Type B (PCR) (Neg) 07/30/18 07/30/18 Range/Units 12:43 15:50 WBC (4.8-10.8) K/uL RBC (4.7-6.1) M/uL Hgb (14.0-18.0) g/dL Hct (42-52) % MCV (80-100) fL MCH (25-34) pg MCHC (32-36) g/dL RDW Std Deviation (36.4-46.3) fL RDW Coeff of Gladys (11.5-14.5) % Plt Count (130-400) K/uL MPV (7.4-10.4) fL Immature Gran % (Auto) % Neut % (Auto) % Lymph % (Auto) % [place] % (Auto) % Eos % (Auto) % Baso % (Auto) % Immature Gran # (Auto) (0.00-0.02) K/uL Neut # (Auto) (1.4-6.5) K/uL Lymph # (Auto) (1.2-3.4) K/uL [place] # (Auto) (0.11-0.59) K/uL Eos # (Auto) (0-0.5) K/uL Baso # (Auto) (0-0.2) K/uL PT (9.0-12.0) Seconds INR (0.9-1.1) APTT (21.0-31.0) Seconds PTT Ratio D-Dimer (0-500) ug/L FEU VBG pH (7.36-7.41) VBG pCO2 (38-50) mmHg VBG pO2 mmHg VBG HCO3 mmol/L VBG O2 Saturation % VBG Base Excess mEq/L Barometric Pressure mm/Hg Sodium (136-145) mmol/L Potassium (3.5-5.1) mmol/L Chloride (98-107) mmol/L Carbon Dioxide (21-32) mmol/L Anion Gap (3-11) BUN (7-18) mg/dl Creatinine (0.6-1.4) mg/dl Est Cr Clr Drug Dosing ml/min Est GFR ( Amer) Est GFR (Non-Af Amer) BUN/Creatinine Ratio (10-20) Glucose (70-99) mg/dl Calcium (8.5-10.1) mg/dl Total Bilirubin (0.2-1) mg/dl AST (15-37) U/L ALT (12-78) U/L Alkaline Phosphatase (45-117) U/L Troponin I (0-0.045) ng/ml NT-Pro-B Natriuret Pep (0-900) pg/ml Total Protein (6.4-8.2) gm/dl Albumin (3.4-5.0) gm/dl Globulin (2.5-4.0) gm/dl Albumin/Globulin Ratio (0.9-2) Procalcitonin (0-0.5) ng/ml Urine Color Yellow Urine Appearance Clear (Clear) Urine pH 5.0 (4.5-7.5) Ur Specific [place] 1.014 (1.000-1.030) Urine Protein Trace H (Negative) Urine Glucose (UA) Negative (Negative) Urine Ketones Negative (Negative) Urine Blood Negative (Negative) Urine Nitrite Negative (Negative) Urine Bilirubin Negative (Negative) Urine Urobilinogen Negative (Negative) Ur Leukocyte Esterase Negative (Negative) Urine WBC (Auto) 1-5 (0-5) /hpf Urine RBC (Auto) 0-4 (0-4) /hpf U Hyaline Cast (Auto) 1-5 (0-5) /lpf U Epithel Cells (Auto) 0-5 (0-5) /lpf Urine Bacteria (Auto) Negative (Negative) Influenza Type A (PCR) Neg for Influ A (Neg) Influenza Type B (PCR) Neg for Influ B (Neg) Imaging Data Radiologist's Impression: Radiology results as stated below per my review and the radiologist's interpretation: XR chest 1V portable HISTORY: Dyspnea COMPARISON: None. FINDINGS: No pneumothorax. Small bilateral pleural effusions. The heart is mildly enlarged. Slight elevation of the right hemidiaphragm. Perihilar interstitial and vascular thickening consistent with pulmonary edema. Linear density at the left midlung zone consistent with subsegmental atelectasis. Patchy density left lung base. IMPRESSION: 1. Mild to moderate pulmonary edema with small bilateral pleural effusions. 2. Patchy left basilar densities are nonspecific but could represent atelectasis or pneumonia. Electronically signed by: Maciel Silverman M.D. 07/30/2018 12:47 PM ECG Data Attestation: I personally reviewed and interpreted this ECG as follows: Indication: SOB/dyspnea Rate (beats per minute): 94 Rhythm: sinus rhythm Findings: + other (normal axis); no PVC Blood Pressure Blood Pressure Findings: Elevated blood pressure Blood Pressure Disposition: further management by hospitalist CINDY Emery Patient is a 53-year-old male who presents the ER for shortness of breath which is been present for the past 3 days associated with swelling in his lower extremities. Upon presentation pulse ox of 72% on room air. He is placed on 5 L nasal cannula. He was hypertensive in the 200s. He was placed on Nitropaste. He had bilateral pitting edema in the lower extremities. Unable to appreciate JVD. Labs show no significant leukocytosis or anemia. INR was unremarkable. VBG with a CO2 of 66. No acidosis. BMP was unremarkable. Troponin was negative. UA was unremarkable as well. Influenza was negative. Chest x-ray does show some mild bilateral pulmonary effusions. Do favor that this is likely secondary to CHF based on his exam. Patient was given IV dose of Lasix. He was updated bedside. Discussed with the hospitalist for further admission. Impression & Plan CHF (congestive heart failure), Hypoxia Discharge Plan Visit Data *Final* Discharge Date/Time: 07/30/18 15:46 Chief Complaint: Shortness of Breath/Dyspnea Stated Complaint: SHORTNESS OF BREATH ED Provider: Rafael Miller Discharge Problem: CHF (congestive heart failure), Hypoxia Patient Disposition: Admitted As Inpatient Discharge Instructions Interventions: ED Discharge Assessment Last Done: 07/30/18 15:46 Discharge Problem: CHF (congestive heart failure) Qualifiers: Heart failure type: unspecified Heart failure chronicity: unspecified Qualified Code(s): I50.9 - Heart failure, unspecified The scribe's documentation has been prepared under my direction and personally reviewed by me in its entirety. I confirm that the note above accurately reflects all work, treatment, procedures, and medical decision making performed by me.
[2018-07-30] MEDS ORDERED: OPTIRAY 320 125ml IV PRN (19:26)
--- NOTE | 2018-07-30 19:53 | CT Scan Report ---
CT angio chest PE protocol CT DOSE: 666.51 mGy.cm HISTORY: 53 years-old Male with PE. Acute shortness of breath TECHNIQUE: Multiple CTA images of the chest were obtained after the intravenous administration of 115 ml Optiray 320. Coronal and sagittal MIPS were obtained from the axial data set and were submitted for review. All measurements were obtained according to NASCET criteria. A dose lowering technique w as utilized adhering to the principles of ALARA. COMPARISON: Chest radiographs of same day. FINDINGS: CTA: Mild multichamber cardiac enlargement. No pericardial effusion. Thoracic aorta is normal in both cour se and caliber without aneurysm or dissection. There is patency about the imaged great vessels. The p ulmonary arterial tree is opacified to level of the lobar branches. The segmental and subsegmental br anches are not well visualized secondary to contrast bolus timing and respiratory motion. No focal fi lling defects identified to suggest pulmonary thromboembolic disease. CT CHEST: No dominant thyroid nodule. Mildly enlarged centrally calcified AP window, paratracheal, subcarinal a nd hilar lymph nodes are compatible with prior granulomatous disease. Trace pleural effusions. Right- sided pleural calcifications are noted with associated pleural parenchymal scarring. No pneumothorax. Moderate bronchial wall thickening is noted with mild bilateral intralobular septal thickening. Line ar consolidative perihilar and bibasilar predominant opacities are suggestive of atelectasis with sca rring. Study is mildly degraded by respiratory motion artifact. There are a few scattered solid pulmo nary nodules noted measuring up to 4 mm within the left lower lobe. Central airways appear patent. Hepatic steatosis. No acute process of the imaged upper abdomen. Soft tissues appear unremarkable. De generative changes of the shoulders and spine. Bones appear to be intact. IMPRESSION: 1. No evidence of pulmonary thromboembolic disease. 2. Mild cardiomegaly with mild pulmonary edema and trace pleural effusions. 3. Bibasilar predominantly linear consolidative opacities are suggestive of atelectasis/scarring. 4. Right-sided pleural calcifications are noted in conjunction with pleural parenchymal scarring. 5. Prior granulomatous disease. 6. There are a few bilateral likely benign solid pulmonary nodules noted measuring up to 4 mm. 7. Hepatic steatosis. Please refer to below summary of Fleischner criteria recommendations for follow-up of incidental CT n letty [place], Guidelines for management of small pulmonary nodules detected on CT scans: A sta tement from the Fleischner Society, Radiology 237: [phone].) SOLID NODULES Multiple nodules size: <6 mm * Low risk patients: no routine follow-up * high risk patients: optional CT at 12 months Note: newly detected indeterminate nodule in persons 35 years of age or older. * Low risk patients: minimal or absent history of smoking and/or other known risk factors * high risk patients: history of smoking or of other known risk factors (e.g. first degree relative with lung cancer, or exposure to asbestos, radon, uranium) * if a nodule up to 8 mm is partly solid or is ground glass further follow-up is required after 24 m onths to exclude possible slow growing adenocarcinoma (MISSY) The above report was generated using voice recognition software. It may contain grammatical, syntax o r spelling errors. Electronically signed by: Levi Chand M.D. 07/30/2018 7:51 PM
[2018-07-30] MEDS ORDERED: cloNIDine HCl 0.1 MG TAB PO STA (21:34)
[2018-07-30] MEDS: TRIAMCINOLONE ACET 0.5% CR 15 GM TUBE TOP SCH (21:50)
--- NOTE | 2018-07-31 06:19 | Ultrasound Report ---
US venous doppler LE BI HISTORY: Pain. Edema. elevated d-dimer COMPARISON STUDY: 09/24/2016 FINDINGS: There is normal compressibility, flow, and augmentation within the bilateral lower extremit y deep venous systems. IMPRESSION: No DVT within the right or left lower extremity. The above report was generated using voice recognition software. It may contain grammatical, syntax or spelling errors. Electronically signed by: Juventino Winter M.D. 07/31/2018 6:18 AM
[2018-07-31 07:48] LABS: Basophils # (auto) 0.01 K/uL (0-0.2); Basophils % (auto) 0.2 %; Eosinophils # (auto) 0.17 K/uL (0-0.5); Eosinophils % (auto) 2.8 %; Hematocrit (blood only) 49.5 % (42-52); Hemoglobin 16.6 g/dL (14.0-18.0); Immature Granulocytes # (auto) 0.02 K/uL (0.00-0.02); Immature Granulocytes % (auto) 0.3 %; Lymphocytes # (auto) 0.85 K/uL (1.2-3.4); Lymphocytes % (auto) 14.1 %; Mean Corpuscular Hgb Conc 33.5 g/dL (32-36); Mean Corpuscular Volume 86.5 fL (80-100); Mean Platelet Volume 11.1 fL (7.4-10.4); Monocytes # (auto) 0.62 K/uL (0.11-0.59); Monocytes % (auto) 10.3 %; Neutrophils # (auto) 4.36 K/uL (1.4-6.5); Neutrophils % (auto) 72.3 %; Platelet Count 111 K/uL (130-400); RDW Coefficient of Variation 16.5 % (11.5-14.5); RDW Standard Deviation 51.7 fL (36.4-46.3); Red Blood Count 5.72 M/uL (4.7-6.1); White Blood Count 6.03 K/uL (4.8-10.8)
[2018-07-31 08:20] LABS: BUN Creatinine Ratio 14.5 (10-20); Calcium 8.6 mg/dl (8.5-10.1); Creatinine Clr Calc Pharmacy 136.6 ml/min; Est GFR (Non-African American) 78.5; Magnesium 1.9 mg/dl (1.8-2.4); Potassium 3.3 mmol/L (3.5-5.1)
[2018-07-31] MEDS: FUROSEMIDE 40 MG in SYRINGE 0 ML IV SCH ×2 (08:36→16:13)
[2018-07-31] MEDS: AMLODIPINE BESYLATE 5 MG TAB PO SCH (08:37)
[2018-07-31] MEDS: LOSARTAN POTASSIUM 50 MG TAB PO SCH (08:37)
[2018-07-31] MEDS ORDERED: POTASSIUM CHLORIDE 10 MEQ TABCR PO SCH (09:00)
[2018-07-31] MEDS ORDERED: LOSARTAN POTASSIUM 50 MG TAB PO SCH (10:00)
[2018-07-31 10:08] LABS: Estimated Average Glucose 114 mg/dl; Hemoglobin A1C 5.6 % (4.5-5.6)
[2018-07-31] MEDS ORDERED: POTASSIUM CHLORIDE 20 MEQ TABCR PO STA (14:34)
--- NOTE | 2018-07-31 14:34 | Hospitalist Progress Note ---
Date of Service July 31, 2018 Assessment & Plan (1) Acute respiratory failure with hypoxemia: Uncertain etiology, pulm to see in setting of sarcoidosis. Likely multifactorial but with normal echo, uncertain if this is totally related to heart failure. Cont Lasix 40 IV BID as he is improved overnight. Cont to try to wean oxygen. (2) CHF (congestive heart failure): Heart failure exacerbation in setting of uncontrolled hypertension. Cont aggressive diuresis. Low sodium diet. Daily weights. (3) HTN (hypertension): Uncontrolled, Cards added Losartan 100mg PO daily. Cont to monitor closely. (4) PAF (paroxysmal atrial fibrillation): -Reports history of PAF in 2011, followed Dr. Pedersen in [place] -Currently not receiving oral anticoagulation or rate control therapy -Monitor on telemetry -defer changes in management to Cardiology. (5) ENE on CPAP: CPAP at bedtime w 5L O2 at baseline. (6) Morbid obesity with BMI of 50.0-59.9, adult: (7) Venous stasis dermatitis of both lower extremities: (8) Thrombocytopenia: chronic (9) Sarcoidosis: reports history of this but is not biopsy proven. (10) DVT prophylaxis: Lovenox Full Dispo-DC when back to baseline breathing. Daisy Godoy DO [facility] Hospitalist Subjective 53 yo M who presents to the hospital with 1 weeks of dyspnea on exertion. He denies coughing, fevers, chills, or other cold symptoms. He denies any progressed edema in his legs, and has chronic venous stasis changes. 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 He reports having some recently uncontrolled blood pressure, where he reports his baseline blood pressure to be 140s systolic. He otherwise denies any chest pain or other symptoms. He is tolerating PO and ambulating. He reports feeling much improved from yesterday although he has persistent resting hypoxia requiring 5Lpm. Physical Exam Vital Signs (Past 24 Hours): Last Vital Signs Temp 36.7 C 07/31/18 11:51 Pulse 81 07/31/18 11:51 Resp 22 07/31/18 11:51 BP 194/93 H 07/31/18 11:51 Pulse Ox 93 07/31/18 11:51 CONSTITUTIONAL: morbid obesity, vitals as above, generally well-appearing EYES: normal conjuctivae, no scleral icterus ENT: MMM RESPIRATORY: clear to auscultation bilaterally but diminished breath sounds throughout, no crackles, rales or wheezes, normal respiratory effort CARDIOVASCULAR: regular rate and rhythm, S1 and 2 heard without murmurs, gallops or rubs, no JVD, +2 peripheral edema in bilateral LEs. Chronic venous stasis dermatitis. GASTROINTESTINAL: normal bowel sounds, soft, nontender, no hepatomegaly, no guarding MUSCULOSKELETAL: strength 5/5 throughout, head is normocephalic and atraumatic, neck supple, normal palpation of chest wall without tenderness SKIN: warm and dry, venous stasis dermatitis to lower extremities. NEUROLOGIC: CN 2-12 grossly intact, no gross focal deficits. PSYCHIATRIC: alert cooperative and oriented to person, place and time. Results & Data Laboratory Results Short CBC 07/31/18 Range/Units 06:58 WBC 6.03 (4.8-10.8) K/uL Hgb 16.6 (14.0-18.0) g/dL Hct 49.5 (42-52) % Plt Count 111 L (130-400) K/uL BMP 07/31/18 06:58 Sodium 141 Potassium 3.3 L Chloride 99 Carbon Dioxide 39 H BUN 16 Creatinine 1.08 Glucose 128 H Calcium 8.6 Urine 07/30/18 Range/Units 15:50 Urine Color Yellow Urine Appearance Clear (Clear) Urine pH 5.0 (4.5-7.5) Ur Specific [place] 1.014 (1.000-1.030) Urine Protein Trace H (Negative) Urine Glucose (UA) Negative (Negative) Medications Administered Current Inpatient Medications Acetaminophen (Tylenol) 650 mg PO Q4H PRN PRN Reason: Pain or Fever Stop: 08/29/18 16:02 Al Hydrox/Mg Hydrox/Simethicone (Maalox) 15 ml PO Q4H PRN PRN Reason: Dyspepsia Stop: 08/29/18 16:02 Albuterol (Ventolin 0.083% 2.5mg/3ml) 2.5 mg NEB Q6R PRN PRN Reason: Shortness Of Breath Stop: 08/29/18 16:02 Amlodipine Besylate (Norvasc) 10 mg PO DAILY [place] Stop: 08/30/18 08:59 Last Admin: 07/31/18 08:37 Dose: 10 mg Documented by: Enoxaparin Sodium (Lovenox) 40 mg SQ Q24H [place] Stop: 08/29/18 16:59 Last Admin: 07/30/18 17:38 Dose: 40 mg Documented by: Hydralazine HCl (Apresoline) 25 mg PO TID [facility] Stop: 08/30/18 13:59 Furosemide 40 mg/ Syringe 4 mls @ 4 mls/min IV BID17 [place] Stop: 08/30/18 08:59 Last Admin: 07/31/18 08:36 Dose: 4 mls/min Documented by: Ioversol (Optiray 320 125ml) 115 ml IV ONCE PRN PRN Reason: Interaction Checking Stop: 08/03/18 19:25 Last Admin: 07/30/18 19:30 Dose: 115 ml Documented by: Losartan Potassium (Cozaar) 100 mg PO QAM [facility] Stop: 08/31/18 08:59 Magnesium Hydroxide (Milk Of Magnesia) 30 ml PO Q12H PRN PRN Reason: Constipation Stop: 08/29/18 16:02 Polyethylene Glycol (Miralax Powder Packet) 17 gm PO DAILY PRN PRN Reason: Constipation Stop: 08/29/18 16:02 Potassium Chloride (Klor-Con M10) 10 meq PO DAILY [place] Stop: 08/30/18 08:59 Last Admin: 07/31/18 08:37 Dose: 10 meq Documented by: Triamcinolone Acetonide (Kenalog 0.5%) 1 appln TOP HS [facility] Stop: 08/29/18 20:59 Last Admin: 07/30/18 21:50 Dose: 1 appln Documented by: (1) CHF (congestive heart failure) Heart failure chronicity: unspecified Heart failure type: unspecified Qualified Code(s): I50.9 - Heart failure, unspecified (2) HTN (hypertension) Hypertension type: essential hypertension Qualified Code(s): I10 - Essential (primary) hypertension
--- NOTE | 2018-07-31 16:11 | Consultation Report ---
DATE OF CONSULTATION: 07/31/2018 INPATIENT CARDIOLOGY CONSULTATION CONSULTATION REQUESTED BY: Caron Serrano PA-C REASON FOR CONSULTATION: Decompensated heart failure. HISTORY OF PRESENT ILLNESS: Mr. Alston is a very pleasant 53-year-old gentleman who is not known to [facility] practice. He was previously followed with Dr. Pedersen of [facility], but has been discharged from his practice for several years now. He presented to [facility] on 07/30/2018 with complaints of shortness of breath. The patient states that 2 or 3 weeks ago, he notes that his back went out and then went to a chiropractor to get it fixed. Shortly thereafter, he started getting short of breath with exertion. He states that over the next several weeks, it gradually increased to the point where he is unable to walk across the room without getting short of breath. During that time, he also noticed that his ankle seemed to become more edematous than normal and he denied any chest pain, palpitations, lightheadedness, dizziness, or syncope. Otherwise, his weight has been creeping up over the summer which he attributed to inactivity. The patient was previously seen by cardiology for a brief episode of atrial fibrillation; however, he never required long-term anticoagulation and he was discharged from a cardiology practice in 2014. PAST SURGICAL HISTORY: 1. Tonsillectomy. 2. Cholecystectomy. 3. Renal calculi extraction. MEDICAL ILLNESSES: 1. Morbid obesity. 2. Chronic venous stasis. 3. Paroxysmal atrial fibrillation. 4. Asthma. 5. Obstructive sleep apnea, nocturnal CPAP. 6. Sarcoidosis, not following with pulmonary. 7. Hypertension. FAMILY HISTORY: Denies any premature coronary artery disease or sudden cardiac . SOCIAL HISTORY: Denies any alcohol, tobacco or recreational drug use. He is and lives at home with his . 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 REVIEW OF SYSTEMS: As per HPI. All other review of systems reviewed and negative at this time. ALLERGIES: CODEINE. MEDICATIONS AN OUTPATIENT: 1. Amlodipine 10 mg daily. 2. Hydrochlorothiazide 25 mg daily. 3. Potassium chloride 10 mEq daily. PHYSICAL EXAMINATION: VITAL SIGNS: Temperature 36.5, pulse 81, respiratory rate 12, blood pressure 173/100. GENERAL: Awake, alert, oriented x3 in no acute distress. HEENT: Normocephalic, atraumatic. Pupils equal, round, and reactive to light and accommodation. Extraocular muscles intact. Anicteric sclerae. Moist mucous membranes. NECK: No JVD, no bruit. CARDIOVASCULAR: Distant, but regular. Unable to appreciate murmurs, rubs or gallops. PULMONARY: Scant bibasilar crackles, no rhonchi or wheezing. ABDOMEN: Bowel sounds x4, soft. No rebound, guarding, tenderness. No organomegaly. EXTREMITIES: No clubbing, cyanosis or edema. +2 pedal pulses bilaterally. SKIN: Warm and dry. TEST RESULTS: 2D echocardiogram was a very limited study due to patient's body habitus and inability to lie flat, grossly normal LV chamber size with moderate concentric LVH, normal LV systolic function, EF 55-60% without wall motion abnormality. CTA of the chest was read as no evidence of PE, mild cardiomegaly with mild pulmonary edema and trace pleural effusions, bibasilar predominant linear consolidation opacities suggestive of atelectasis/scarring, prior granulomatous disease, likely benign nodule. IMPRESSION: 1. Acute decompensated diastolic heart failure. 2. Hypertension with possible hypertensive urgency. 3. Obstructive sleep apnea, nocturnal CPAP. 4. Remote history of paroxysmal atrial fibrillation, never requiring anticoagulation. 5. Morbid obesity. 6. History of sarcoidosis of the lung. RECOMMENDATIONS: It is my pleasure to see Mr. Alston in consultation today. From a cardiac standpoint, the patient does examine somewhat volume overloaded and he has improved with diuresis, so continue with diuresis for now. At the same time, I would like our pulmonary colleagues to evaluate him for his history of sarcoid. Otherwise, his blood pressure is dangerously elevated, so I will start him on hydralazine 25 mg t.i.d. and increase as necessary. He should be continued on his home amlodipine and hydrochlorothiazide and I will also start losartan 100 mg daily and hydralazine can be increased as necessary. Otherwise, we will follow his volume status clinically.
[2018-07-31] MEDS: ENOXAPARIN INJ 40 MG/0.4 ML SYR SQ SCH (16:13)
--- NOTE | 2018-07-31 17:54 | Pulmonary Consultation ---
Date of Consultation July 31, 2018 Assessment & Plan (1) Sarcoidosis: Impression: 1. Sarcoidosis, stage II, based on imaging not biopsy. Patient never had one. 2. Hypertensive cardiomyopathy. 3. Obstructive sleep apnea with morbid obesity. 4. Cardiomegaly with CHF. Plan: 1. No need for further workup in this patient. He is stage II, it does not escalate to stage III or IV. 2. No evidence of exacerbation, no skin lesion, no visual symptoms, BUN/creatinine has been stable. Echocardiogram did not report granulomatous disease in the heart muscle. 3. Continue ophthalmology exam, echocardiogram, BUN and creatinine on annual basis. 4. The patient has been diagnosed for the past 20 years based on imaging, if desired, a biopsy can be done, elective at best. 5. The patient would benefit also from long-acting and short-acting beta agonist, treatment for pulmonary sarcoidosis is the same like asthma exacerbation. 6. Continue aggressive diuresis and treatment for cardiomyopathy as you are doing. 7. Aggressive treatment of hypertension. 8. Keep the patient on CPAP with 5 L of oxygen as he does at home, it is advisable to use oxygen also during the daytime. Thank you, will follow as needed. History of Present Illness Reason for Consultation: Sarcoidosis Requesting Physician: Dr. Pedersen Attending Physician: Daisy Godoy, DO History of Present Illness Dear Dr. Pedersen, dear Dr. Godoy, Thank you for the kind referral of Mr. Alston to pulmonary service. This is 53-year-old gentleman with history of morbid obesity, history of A. fib, and history of sarcoidosis diagnosed 20 years ago by x-ray only, the patient has been working for a [employer] where he was asked to leave due to the changes on his chest x-ray suggestive of sarcoidosis, he has not had any biopsy in the past. Patient presented to the hospital with increasing shortness of breath accompanied with weight gain including fluid in his lower extremities. The patient was admitted to the hospital and evaluated by cardiology and started on aggressive diuresis. I was asked to evaluate the patient from pulmonary standpoint for sarcoidosis. The patient denies any chest pain, no abdominal pain, no nausea or vomiting, no visual disturbances, he does have increased swelling in his lower extremities and skin changes consistent with venous stasis from leg edema that has been chronic. The patient exercise capacity is less than 100 feet. He does not use oxygen during the daytime but he uses only at nighttime with his CPAP. The patient body weight has been fluctuating but he is reaching anywhere between 350-400 pounds. The patient did not have any admissions to the hospital due to respiratory issues in the past. Allergies Allergy/AdvReac Type Severity Reaction Status Date / Time codeine Allergy Intermediate HIVES Unverified 07/30/18 13:04 Home Medications Home Medications Medication Instructions Recorded Confirmed Type amlodipine 10 mg PO DAILY 07/30/18 07/30/18 History hydrochlorothiazide 25 mg PO DAILY 07/30/18 07/30/18 History potassium chloride [Klor-Con 10] 10 meq PO DAILY 07/30/18 07/30/18 History triamcinolone acetonide 1 applic TOPICAL HS 07/30/18 07/30/18 History Patient History Medical History Morbid obesity with BMI of 50.0-59.9, adult (Chronic) Venous stasis dermatitis of both lower extremities (Chronic) PAF (paroxysmal atrial fibrillation) (Chronic) Asthma (Chronic) ENE on CPAP (Chronic) Sarcoidosis (Chronic) HTN (hypertension) (Chronic) Sarcoidosis of lung Surgical History History of tonsillectomy (Chronic) History of cholecystectomy (Chronic) History of extraction of renal calculus (Chronic) Family History Father Bladder cancer Mother COPD (chronic obstructive pulmonary disease) Valvular heart disease Social History Communication Ability: Effective Beliefs That Will Affect Care: None marital status: Single Current Living Situation: Family current occupational status: employed current occupation: [employer] Other Information That Helps Us Care for You: No Feels Safe at Home: Yes Safety Concerns: Feels Safe At This Time Smoking Status: Never smoker Hx Alcohol Use: No Hx Substance Use: No Review of Systems Review of system including 10 systems has been reviewed, otherwise were unremarkable. Physical Exam Vital Signs (Past 24 Hours): Last Vital Signs Temp 36.5 C 07/31/18 15:23 Pulse 81 07/31/18 15:23 Resp 22 07/31/18 15:23 BP 173/100 H 07/31/18 15:23 Pulse Ox 92 07/31/18 15:23 Physical Exam: Vital signs are stable, blood pressure slightly elevated, the patient has been treated aggressively for hypertension, no JVD, no abnormality in the eye exam, no lymphadenopathy in the neck area, S1-S2 regular rate and rhythm, distant breath sounds bilaterally, not audible, severe edema in lower extremities with venous stasis changes. No joint swelling. No skin rash. Results & Data Laboratory Results His labs were reviewed which showed normal CBC, BUN/creatinine has been stable at 16 and 1.0, he has not had any visual exams before to review. Diagnostic Findings CAT scan of the chest which I reviewed personally showed no PE, cardiomegaly, lymphadenopathy, small pleural effusion bilaterally, findings suggestive of granulomatous disease.
[2018-07-31] MEDS: HydrALAZINE TAB 50 MG TAB PO SCH (20:42)
[2018-07-31] MEDS: POTASSIUM CHLORIDE 20 MEQ TABCR PO SCH (20:43)
[2018-07-31] MEDS: TRIAMCINOLONE ACET 0.5% CR 15 GM TUBE TOP SCH (20:43)
[2018-07-31] MEDS ORDERED: ARTIFICIAL TEARS OP PRN (22:18)
[2018-08-01] MEDS: FUROSEMIDE 40 MG in SYRINGE 0 ML IV SCH ×2 (07:51→16:49)
[2018-08-01] MEDS: POTASSIUM CHLORIDE 20 MEQ TABCR PO SCH ×2 (07:52→20:36)
[2018-08-01] MEDS: LOSARTAN POTASSIUM 50 MG TAB PO SCH (07:52)
[2018-08-01] MEDS: HydrALAZINE TAB 50 MG TAB PO SCH ×3 (07:52→20:36)
[2018-08-01] MEDS: AMLODIPINE BESYLATE 5 MG TAB PO SCH (07:52)
[2018-08-01] MEDS ORDERED: POTASSIUM CHLORIDE 20 MEQ TABCR PO SCH (09:00)
[2018-08-01] MEDS ORDERED: HydrALAZINE TAB 50 MG TAB PO SCH (09:00)
[2018-08-01] MEDS ORDERED: POTASSIUM CHLORIDE 20 MEQ TABCR PO STA (11:47)
--- NOTE | 2018-08-01 13:41 | Cardiology Progress Note ---
Date of Service August 01, 2018 Assessment & Plan (1) Acute diastolic (congestive) heart failure: diuresing well still examines as volume overloaded, cont with IV lasix follow potassium closely and replete to above 4 check Magnesium level will add spironolactone for diastolic dysfunction as well as to aid in maintaining potassium levels (2) Sarcoidosis: appreciate pulmonary input (3) HTN (hypertension): remains elevated despite addition and titration of hydralazine cont losartan, hydralazine, amlodipine spironolactone added now, should aid in management could also consider terazosin cont to follow Subjective Pt seen and examined, states that he's feeling better today. Breathing is improving as is lower extremity edema. Tolerating new meds without issue. Denies cp, palpitations, lightheadedness or dizziness. tele reviewed: sinus rhythm without arrhythmia or significant ectopy. Review of Systems All systems reviewed & are unremarkable except as noted in HPI & below Physical Exam Vital Signs (Past 24 Hours): Last Vital Signs Temp 36.4 C L 08/01/18 10:58 Pulse 87 08/01/18 10:58 Resp 20 08/01/18 10:58 BP 164/91 H 08/01/18 10:58 Pulse Ox 92 08/01/18 10:58 Physical Exam: General: Awake, alert and oriented x 3. No acute distress. HEENT: Normocephalic, atraumatic. Pupils equal, round and reactive to light and accommodation. Extraocular muscles are intact. Anicteric sclera. Moist mucous membranes. Neck: No JVD. No bruit. Cardiovascular: Regular. Positive S-4. Normal S-1 and S-2. No S-3. No murmurs or rubs. Pulmonary: Clear to auscultation B/L. No rales, rhonchi or wheezing Abdomen: Bowel sounds x 4, soft. No rebound, guarding or tenderness. No organomegaly. Extremities: No clubbing, cyanosis. 2+ B/L LE pitting edema. +2 pedal pulses bilaterally. Skin: Warm and dry. (1) HTN (hypertension) Hypertension type: essential hypertension Qualified Code(s): I10 - Essential (primary) hypertension
[2018-08-01] MEDS: SPIRONOLACTONE 25 MG TAB PO SCH (14:16)
[2018-08-01] MEDS: ENOXAPARIN INJ 40 MG/0.4 ML SYR SQ SCH (16:49)
--- NOTE | 2018-08-01 18:20 | Hospitalist Progress Note ---
Date of Service August 01, 2018 Assessment & Plan (1) Acute respiratory failure with hypoxemia: due to acute decompensated congestive heart failure with diastolic dysfunction Presented with one-week history of shortness of breath dyspnea on exertion orthopnea, was hypoxic in room air on presentation Symptom improved with IV diuresis Echo: Grossly normal LV chamber size with moderate concentric LVH Normal LV systolic function EF 55-60% No segmental left ventricular wall motion abnormalities noted patient is continue with Lasix 40 mg IV twice daily Appreciate input from cardiology Patient is counseled for daily weight monitoring, limit salt intake Will need to follow-up with cardiology in the outpatient Patient was previously followed with cardiology in 2 [place], wants to continue follow-up at [facility] (2) CHF (congestive heart failure): Acute on chronic decompensated congestive heart failure with diastolic heart dysfunction Continued with IV Lasix 40 mg twice daily, patient will continue with losartan, will be added Aldactone Outpatient follow-up with cardiology Patient is counseled for low-dose salt intake daily weight monitoring Hypokalemia: Secondary to IV Lasix diuresis, added potassium supplement, will be added Aldactone Present on Admission?: Yes (3) HTN (hypertension): Continue on losartan 100mg PO daily. Added hydralazine, plan to add to her juice and if blood pressure remains poorly controlled On Lasix 40 mg IV twice daily Will be changed to oral on discharge (4) PAF (paroxysmal atrial fibrillation): -Reports history of PAF in 2011, followed Dr. Pedersen in [place] -Currently not receiving oral anticoagulation or rate control therapy -At present appears to be in sinus rhythm, continue beta-jose m (5) ENE on CPAP: CPAP at bedtime w 5L O2 at baseline. (6) Morbid obesity with BMI of 50.0-59.9, adult: -discussed lifestyle modification-exercise/diet controlled -consulted gluer machine operator for further diet education (7) Venous stasis dermatitis of both lower extremities: -continue triamcinolone at HS (8) Thrombocytopenia: chronic (9) Sarcoidosis: CT chest shows hilar lymphadenopathy, appreciate input from pulmonology Stage II sarcoidosis, did not had any biopsy in the past, echo shows no granulomatous muscle involvement Patient should continue to follow-up outpatient already have pulmonology established in 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 Will need to step exercise to assess home oxygen requirement Subjective Patient sitting up on chair, denies any shortness of breath, no dyspnea on exertion, feels bilateral lower extremity swelling has improved markedly denies of any orthopnea I had a long discussion with limit salt intake, patient reports that he eats usually junk food mostly but willing to try to change to healthy eating habits Physical Exam Vital Signs (Past 24 Hours): Last Vital Signs Temp 36.4 C L 08/01/18 10:58 Pulse 86 08/01/18 16:06 Resp 18 08/01/18 16:06 BP 156/71 H 08/01/18 16:06 Pulse Ox 93 08/01/18 16:06 Constitutional: + morbidly obese No sign of distress Eyes: PERRL, conjunctivae normal, anicteric sclerae ENMT: external ear and nose normal, oropharynx normal Neck: trachea midline, no thyromegaly Thyroid: thyroid nontender No JVD noted Respiratory: Auscultation: + diminished lung sounds, + rales and + wheezes Cardiovascular: Rate/Rhythm: regular rate and regular rhythm Vessels: no JVD Extremities: + edema (+3/4 bilateral pitting edema); no calf tenderness Gastrointestinal (Abdomen): Percussion/Palpation: abdomen soft; abdomen nontender Distended, bowel sounds active Musculoskeletal: Bilateral +3/+4 pitting edema with chronic venous stasis changes Neurologic: PERRL, EOMI, accommodation nl, no face palsy, no dysarthria Psychiatric: A+Ox3, euthymic affect (1) CHF (congestive heart failure) Heart failure chronicity: unspecified Heart failure type: unspecified Qualified Code(s): I50.9 - Heart failure, unspecified (2) HTN (hypertension) Hypertension type: essential hypertension Qualified Code(s): I10 - Essential (primary) hypertension
[2018-08-01] MEDS: TRIAMCINOLONE ACET 0.5% CR 15 GM TUBE TOP SCH (20:35)
[2018-08-01] MEDS ORDERED: TERAZOSIN HCL 1 MG CAP PO SCH (21:00)
[2018-08-02 07:23] LABS: BUN Creatinine Ratio 22.6 (10-20); Calcium 8.8 mg/dl (8.5-10.1); Creatinine Clr Calc Pharmacy 130.7 ml/min; Est GFR (African American) 86.1; Est GFR (Non-African American) 74.3; Magnesium 2.3 mg/dl (1.8-2.4); Potassium 3.9 mmol/L (3.5-5.1)
[2018-08-02] MEDS: FUROSEMIDE 40 MG in SYRINGE 0 ML IV SCH (07:54)
[2018-08-02] MEDS: HydrALAZINE TAB 50 MG TAB PO SCH ×2 (07:55→12:53)
[2018-08-02] MEDS: SPIRONOLACTONE 25 MG TAB PO SCH (07:55)
[2018-08-02] MEDS: POTASSIUM CHLORIDE 20 MEQ TABCR PO SCH (07:56)
[2018-08-02] MEDS: LOSARTAN POTASSIUM 50 MG TAB PO SCH (07:56)
[2018-08-02] MEDS: AMLODIPINE BESYLATE 5 MG TAB PO SCH (07:56)
[2018-08-02] MEDS ORDERED: TERAZOSIN HCL 1 MG CAP PO SCH (11:00)
--- NOTE | 2018-08-02 13:40 | Cardiology Progress Note ---
Date of Service August 02, 2018 Assessment & Plan (1) Acute diastolic (congestive) heart failure: has diuresed over 3.5L appears to be at baseline will change lasix to po daily, if still inpatient this evening will give last iv dose potassium levels improved would d/c with KCl 40meq po daily for 1 week until bmp drawn given profound hypokalemia during hospitalization bmp in 1 week spironolactone added for diastolic dysfunction as well as to aid in maintaining potassium levels my office will call to arrange f/u with me in 2 weeks (2) Sarcoidosis: appreciate pulmonary input (3) HTN (hypertension): terazosin added overnight with some improvement will give additional 2mg of terazosin now and if bp controlled this PM around 1700, would be ok to d/c to home would d/c home with: amlodipine 10mg daily losartan 100mg daily hydralazine 100mg TID spironolactone 25mg daily terazosin 4mg QHS will follow with me as an outpatient Subjective Pt seen and examined, states that he's feeling better today. Breathing is improving as is lower extremity edema, feels to be at his baseline. Tolerating new meds without issue. Denies cp, palpitations, lightheadedness or dizziness. tele reviewed: sinus rhythm without arrhythmia or significant ectopy. Physical Exam Vital Signs (Past 24 Hours): Last Vital Signs Temp 36.5 C 08/02/18 11:32 Pulse 94 H 08/02/18 11:32 Resp 20 08/02/18 11:32 BP 155/82 H 08/02/18 11:32 Pulse Ox 93 08/02/18 11:32 Physical Exam: General: Awake, alert and oriented x 3. No acute distress. HEENT: Normocephalic, atraumatic. Pupils equal, round and reactive to light and accommodation. Extraocular muscles are intact. Anicteric sclera. Moist mucous membranes. Neck: No JVD. No bruit. Cardiovascular: Regular. Positive S-4. Normal S-1 and S-2. No S-3. No murmurs or rubs. Pulmonary: Clear to auscultation B/L. No rales, rhonchi or wheezing Abdomen: Bowel sounds x 4, soft. No rebound, guarding or tenderness. No organomegaly. Extremities: No clubbing, cyanosis or edema. +2 pedal pulses bilaterally. Skin: Warm and dry. (1) HTN (hypertension) Hypertension type: essential hypertension Qualified Code(s): I10 - Essential (primary) hypertension
--- NOTE | 2018-08-02 15:53 | Discharge Summary ---
Date of Service August 02, 2018 Admission HPI Per Admitting Provider This is a 53-year-old male who has a significant past medical history of PAF not on oral anticoagulation, HTN, ENE on CPAP, asthma, history of sarcoidosis who presents to [facility] secondary to VILLANUEVA times 2-3 weeks. 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 He developed back pain approximately 2-3 weeks ago, "my back went out." He initially thought shortness of breath was related to his back pain and therefore saw a chiropractor. His back pain improved after adjustment but his dyspnea on exertion continued. Symptoms continued to get worse, "I even get short of breath with walking short distances." He denies shortness breath at rest, chest pain, palpitations, orthopnea, PND, recent illness, fever, chills, sweats, cough, hemoptysis, nausea, vomiting, diarrhea, changes in bowel or urinary habits. He does have chronic bilateral lower extremity swelling in which he feels is unchanged. "I do feel like I am full of fluid." He has had a weight gain per patient from 380lb to approximately 410lb. He attributes this to sedentary lifestyle during winter months; however, his weight here is 3-7 pounds. He denies any history of heart disease or CHF. He does note back in 2011 he had an episode of paroxysmal atrial fibrillation treated under the care of paper bundler Dr. Pedersen in [place]. He is no longer under his care and does not take any oral anticoagulants. Further he states he has a history of sarcoidosis; however he has never seen a planer setter or received treatment for such, just notes that he wears a CPAP at . and daughter at bedside. Principal Diagnosis CONGESTIVE HEART FAILURE WITH DIASTOLIC DYSFUNCTION Discharge Exam Constitutional + morbidly obese Eyes PERRL, conjunctivae normal, anicteric sclerae ENMT external ear and nose normal, oropharynx normal Neck trachea midline, no thyromegaly Thyroid: thyroid nontender Respiratory Auscultation: + diminished lung sounds, + rales and + wheezes Cardiovascular Rate/Rhythm: regular rate and regular rhythm Vessels: no JVD Extremities: + edema (+3/4 bilateral pitting edema); no calf tenderness Gastrointestinal (Abdomen) Percussion/Palpation: abdomen soft; abdomen nontender Neurologic PERRL, EOMI, accommodation nl, no face palsy, no dysarthria Psychiatric A+Ox3, euthymic affect Discharge Data Allergies Allergy/AdvReac Type Severity Reaction Status Date / Time codeine Allergy Intermediate HIVES Unverified 07/30/18 13:04 Consultations 07/30/18 14:05 ED Decision to Admit Stat 07/30/18 16:03 Consult Cardiology Routine 07/31/18 09:45 Consult Pulmonology Routine Ordered Studies 07/30/18 16:40 CT angio chest PE protocol Urgent 07/30/18 16:49 US venous doppler LE BI Routine Hospital Course (1) Acute respiratory failure with hypoxemia: due to acute decompensated congestive heart failure with diastolic dysfunction Presented with one-week history of shortness of breath dyspnea on exertion orthopnea, was hypoxic in room air on presentation Symptom improved with IV diuresis lasix changed to PO 40 mg daily Echo: Grossly normal LV chamber size with moderate concentric LVH Normal LV systolic function EF 55-60% No segmental left ventricular wall motion abnormalities noted y Appreciate input from cardiology Patient is counseled for daily weight monitoring, limit salt intake Will need to follow-up with cardiology in the outpatient [facility] cardiology office will call with appointment pt remains hypoxic at rest and with desaturation on activity possible due to obesity hypoventilation syndrome symptom worsen with decompensated CHF 2 step exercise done pt will need home 02 script given appreciate input from social service arrangements made for home 02 (2) CHF (congestive heart failure): Acute on chronic decompensated congestive heart failure with diastolic heart dysfunction Lasix changed to 40 mg PO daily , patient will continue with losartan, added Aldactone Outpatient follow-up with cardiology Patient is counseled for low-dose salt intake daily weight monitoring Hypokalemia: corrected added potassium supplement, started on Aldactone repeat BMP check in a weeks (3) HTN (hypertension): Continue on losartan 100mg PO daily. added Hydralzine /Aldactone Lasix changed to 40 mg Po daily (4) PAF (paroxysmal atrial fibrillation): -Reports history of PAF in 2011, followed Dr. Pedersen in [place] -Currently not receiving oral anticoagulation or rate control therapy -At present appears to be in sinus rhythm, continue beta-jose m (5) ENE on CPAP: CPAP at bedtime w 5L O2 at baseline. (6) Morbid obesity with BMI of 50.0-59.9, adult: -discussed lifestyle modification-exercise/diet controlled -consulted director of casino for further diet education (7) Venous stasis dermatitis of both lower extremities: -continue triamcinolone at HS (8) Thrombocytopenia: chronic (9) Sarcoidosis: CT chest shows hilar lymphadenopathy, appreciate input from pulmonology Stage II sarcoidosis, did not had any biopsy in the past, echo shows no gra nulomatous muscle involvement Patient should continue to follow-up outpatient already have pulmonology established in [facility] (10) DVT prophylaxis: Lovenox 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 Total Time Total Time Spent Total Time Spent (In Minutes): approx 40 mins Total Time Includes: Examination of the Patient, Discharge Planning, Medication Reconciliation and Communication With Other Providers Discharge Plan Discharge Items Patient Disposition: Home - Self-Care Reason For Visit: CHF EXAC Discharge Diagnosis: CONGESTIVE HEART FAILURE WITH DIASTOLIC DYSFUNCTION Discharge Goals: Decrease discomfort, Diagnostic testing and Improve disease control Activity: Resume your previous activity Non-emergency contact: Primary Care Provider Call non-emergency contact if: you have any medication questions Follow-up/Referrals: Boo Pedersen DO [Physician] - (CARDIOLOGY FOLLOW UP IN 2 WEEKS OFFICE WILL CALL WITH APPOINTMENT ) Roberto Parkinson DO [Primary Care Provider] - Diet: Heart Healthy and Low Sodium (2gm) Fluids: 1500ml (6 cups) Other Ambulatory Orders: Basic Metabolic Panel (Routine) Timeframe: 1 Week Location: Determined by Patient Ordered By: Prema Malik Provider Instructions: Call your Primary Care doctor if any of the following symptoms or problems start or get worse: * Shortness of breath or difficulty breathing * Wake up at night short of breath * Chest pain * Cough * Swelling of your hands, feet, or legs * More fatigued or tired with your normal activity * Palpitations - sudden fast heart beats WEIGHT * Weigh yourself every morning after using the bathroom. * Use the same scale. * Wear the same amount of clothing. * Write your weight down on a chart. * Call your Primary Care doctor if you gain more than 2-3 pounds in 1-2 days. MEDICATIONS * Use this discharge instruction sheet for medication instructions. * Take your medications at the time your doctor ordered. * Do not skip a dose of your medicines. * If you miss a dose of medicine, take it as soon as possible, but DO NOT DOUBLE A DOSE. * Read your medicine information when you get home. * Know all of the side effects of your medicine. If in doubt, ask your pharmacist * Call your Primary Care doctor's office if you have any side effects. * Be sure all of your doctors know what medicine and herbs you take (including cold, flu, and herbal medicine). Take the following with you to your follow-up doctor appointments: * Weight Chart * Medication List * List of questions Do not drink excessive alcohol, beer or wine. Prescriptions: New losartan 50 mg Tablet 100 mg PO QAM 30 Days Qty: 60 RF: 0 furosemide 40 mg Tablet 40 mg PO QAM 30 Days Qty: 30 RF: 0 terazosin 1 mg Capsule 2 mg PO HS 30 Days Qty: 60 RF: 0 spironolactone 25 mg Tablet 25 mg PO QAM 30 Days Qty: 30 RF: 0 potassium chloride [Klor-Con M20] 20 mEq Tablet,Er Particles/Crystals 40 meq PO DAILY 30 Days Qty: 60 RF: 0 hydralazine 50 mg Tablet 100 mg PO TID 30 Days Qty: 180 RF: 0 Continued triamcinolone acetonide 0.5 % Cream 1 applic TOPICAL HS RF: 0 amlodipine 10 mg Tablet 10 mg PO DAILY RF: 0 Discontinued potassium chloride [Klor-Con 10] 10 mEq Tablet Extended Release 10 meq PO DAILY RF: 0 hydrochlorothiazide 25 mg Tablet 25 mg PO DAILY RF: 0 Stand-Alone Forms: My [facility], Work/School Release (Inpt) Krames/Other Patient Handouts: Choices Low Salt, Diet Low Salt Dc, ED Diet Low Salt 2Gm Discharge Orders: Discharge Order (Routine); Ordered 08/02/18 Ordered By: Prema Day Admission Data Admit Date/Time: 07/30/18 14:46 Attending Provider: Prema Day Admit Provider: Jayshree Torrez Primary Care Provider: Roberto Parkinson Other Providers: Boo Pedersen ; Jayshree Torrez ; Lavinia Osullivan ; Daisy Godoy Service: Telemetry Other Interventions: Discharge Summary Assessment (RN) Last Done: 08/02/18 17:20 DC Date/Time DO NOT enter until pt leaves facility: 08/02/18 17:45
[2018-08-03] MEDS ORDERED: FUROSEMIDE 40 MG TAB PO SCH (09:00)
== END 2018-08-02 17:45 | disposition home or self-care (01) | DRG 291 ==
LOC: ED 12:03 → SUATTDRO 14:46 → 2N 14:46